=== PATIENT | female | born 1990 | race Two or more races ===

== ENCOUNTER → 2022-02-12 | Outpatient (CLI) | payer MEDICAID ==
[~2022-02-12] VITALS: Ht 170.2 cm; Wt 154.2 kg
[~2022-02-12] MED LIST: ADENOSINE IV ONE; GIVE UN DILUTED IV ONE
[2022-02-12 09:03] VITALS: BP 118/70
== END | disposition home or self-care (01) ==
LOC: XY 08:18
PROVIDERS: ATTEND Internal Medicine
DX: R07.89 Other chest pain (principal); R00.2 Palpitations; R06.02 Shortness of breath; R63.8 Other symptoms and signs concerning food and fluid intake; F41.0 Panic disorder [episodic paroxysmal anxiety]; F43.9 Reaction to severe stress, unspecified; F41.9 Anxiety disorder, unspecified; Z68.43 Body mass index [BMI] 50.0-59.9, adult
CPT/HCPCS: 78452; 93017; A9500; J0153